=== PATIENT | male | born 1985 | race Caucasian/White ===

== ENCOUNTER 2016-08-25 17:18 | Emergency (ER) | payer OTHER ==
[~2016-08-25 17:18] MED LIST: IBUPROFEN800 MG; LORTAB 7.5/5001 TAB; NO MEDICATIONS
[2016-08-25] MEDS ORDERED: LEXAPRO10 M2 PO (17:53)
[2016-08-25] MEDS ORDERED: NORCO 5-325 TA1 EACH PO (18:21)
== END 2016-08-25 18:37 ==
LOC: EDMED 17:18
DX: T23.252A Burn of second degree of left palm, initial encounter (principal); F17.210 Nicotine dependence, cigarettes, uncomplicated; X19.XXXA Contact with other heat and hot substances, initial encounter; Y92.69 Other specified industrial and construction area as the place of occurrence of the external cause; Y99.0 Civilian activity done for income or pay
CPT/HCPCS: J1170